=== PATIENT | female | born 1945 | race Caucasian/White ===

== ENCOUNTER 2016-12-02 11:50 | Emergency (ER) | payer MEDICARE, OTHER ==
[~2016-12-02] VITALS: Ht 167.6 cm; Wt 90.7 kg
[~2016-12-02 11:50] MED LIST: ALPR.25T PO; ALPR1TAB11 PO; AMLO10TA82 PO; ASP81CT PO; CA C1TAB80 PO; CEPH500C PO; CITA-105 PO; CTLP20T PO; CYCL10TA9 PO; ESTR0.9T PO; FERR-57 PO; GBPN300C PO; HCT25T PO; HYDR-3720 PO; HYDR25TA4 PO; IRON PO; ISM30TCR PO; LANS30CA PO; MELO-195 PO; MTP25TSR PO; OLME40TA14 PO; OXYC30TA76 PO; OXYC40TA49 PO; POTA10CA43 PO; PRAV10TA23 PO; RECLAST; SOLI5TAB4 PO; SPIR25TA3 PO; SPRN25T PO; TEMA30CA PO; TOLTA4 PO
[2016-12-02] MEDS ORDERED: HYDROmorphone (DILAUDID) 2 MG/ML VIAL IM STA (12:02)
--- NOTE | 2016-12-02 12:10 | ED Lower Extremity ---
General Chief Complaint: Lower Extremity Stated Complaint: KNEE PAIN Nursing Triage Note: c/o chronic left knee pain. Denies recent injury to knee. Hx of severe arthritis left knee. Pt has been told she needs a left knee replacement. Nursing Sepsis Screen: No Definite Risk Source: patient, EMS Exam Limitations: no limitations History of Present Illness Time seen by provider: 11:56 Initial Comments Here with report of acute exacerbation of left knee pain after packing at home over the last few days. Her typical pain med dosing is not working. Onset: other (2-3 days) Severity: moderate Pain/Injury Location: left knee Method of Injury: unknown Modifying Factors: Improves With Immobilization, Worse With Movement Allergies and Home Medications Allergies Coded Allergies: adhesive (Unverified Allergy, Unknown, 04/19/14) codeine (Verified Allergy, Unknown, 04/19/14) solifenacin succinate (Verified Allergy, Unknown, 04/19/14) Home Medications Alprazolam 1 Mg Tab.rapdis, 1 MG PO BID PRN, (Reported) PRN ANXIETY Citalopram Hydrobromide 40 Mg Tablet, 40 MG PO DAILY, (Reported) Hydrochlorothiazide 25 Mg Tablet, 25 MG PO PRN PRN for SWELLING, (Reported) Isosorbide Mononitrate 30 Mg Tab, 30 MG PO DAILY, (Reported) Lansoprazole 30 Mg Capsule.dr, 30 MG PO DAILY, (Reported) Oxycodone Hcl 40 Mg Tab.sr.12h, 40 MG PO TID, (Reported) Potassium Chloride 10 Meq Capsule.sa, 1 EACH PO DAILY WITH FOOD, (Reported) Pravastatin Sodium 10 Mg Tablet, 10 MG PO HS, (Reported) Spironolactone 25 Mg Tab, 25 MG PO PRN PRN for SWELLING, (Reported) Temazepam 30 Mg Capsule, 30 MG PO HS, (Reported) [Iron] , 625 MG PO BID, (Reported) Constitutional: see HPI, No chills, No fever Respiratory: no symptoms reported Cardiovascular: no symptoms reported Musculoskeletal: see HPI, joint pain, joint swelling Skin: no symptoms reported Past Myowpqp-Vawvlc-Gtyjog Hx Patient Social History Smoking Status: Unknown if Ever Smoked Recent Foreign Travel: No Contact w/Someone Who Travel: No Recent Infectious Disease Expo: No Immunizations Up To Date Date of Pneumonia Vaccine: May 11, 2011 Date of Influenza Vaccine: May 31, 2012 Surgeries HX Surgeries: Yes (LUMBAR SURGERY, LIVER BX, RIGHT BREAST BX, ERCP, HIATAL HERNIA, HEART CATH) Respiratory Hx Respiratory Disorders: Yes ( A CHILD) Respiratory Disorders: Asthma Cardiovascular Hx Cardiac Disorders: Yes (PACEMAKER- MEDTRONIC, MITRAL VALVE REGURITATION, BRADYCARDIA) Neurological Hx Neurological Disorders: No Reproductive System : No Hx Reproductive Disorders: No Sexually Transmitted Disease: No HIV/AIDS: No Female Reproductive Disorders: Denies Genitourinary Hx Genitourinary Disorders: No Gastrointestinal Hx Gastrointestinal Disorders: Yes Gastrointestinal Disorders: Gastroesophageal Reflux Musculoskeletal Hx Musculoskeletal Disorders: Yes (OSTEOARTHRITIS/FIBROMYALGIA) Musculoskeletal Disorders: Arthritis Endocrine Hx Endocrine Disorders: No HEENT HX ENT Disorders: No Cancer Hx Cancer: No Psychosocial Hx Psychiatric Problems: Yes Integumentary HX Skin/Integumentary Disorder: Yes (RIGHT LOWER LEG, SKIN TEARS AND BRUISES EASY) Skin/Integumentary Disorders: Psoriasis Blood Transfusions Hx Blood Disorders: No Adverse Reaction to a Blood Tr: No Reviewed Nursing Assessment Reviewed/Agree w Nursing PMH: Yes Family Medical History Significant Family History: No Pertinent Family Hx Family Medial History: Alzheimer's disease 19 FATHER Cardiovascular disease 19 MOTHER Coronary thrombosis 19 MOTHER FH: lung cancer G8 BROTHER Physical Exam Vital Signs Vital Sign - Last 12Hours 12/02/16 11:58 Temp 98.5 Pulse 70 Resp 18 B/P (MAP) 121/72 Pulse Ox 98 Capillary Refill : Less Than 3 Seconds General Appearance: WD/WN, no apparent distress Cardiovascular: regular rate, rhythm, no murmur Respiratory: lungs clear, normal breath sounds Knees: right knee non-tender, right knee normal inspection, left knee pain, left knee soft tissue tenderness, left knee other (Pain with range of motion) Feet: bilateral foot other (DP pulses equal and strong bilat) Neurologic/Psychiatric: alert, oriented x 3 Skin: normal color, warm/dry Progress/Results/Core Measures Results/Orders My Orders Orders - KAYLIE BRICEÑO MD Hydromorphone Injection (Dilaudid Inject (12/02/16 12:02) Prednisone Tablet (Deltasone Tablet) (12/02/16 12:15) Medications Given in ED Current Medications Medications Dose Ordered Sig/Meliza Route Start Time Stop Time Status Last Admin Dose Admin Prednisone 40 mg ONCE ONCE PO 12/02/16 12:15 12/02/16 12:16 DC 12/02/16 12:14 40 MG Vital Signs/I&O Vital Sign - Last 12Hours 12/02/16 12/02/16 11:58 12:15 Temp 98.5 98.3 Pulse 70 Resp 18 B/P (MAP) 121/72 Pulse Ox 98 Blood Pressure Mean: 88 Progress Note : Progress Note Seen and evaluated. Dilaudid 2 mg IM and prednisone 40 mg po. Attempted to contact Dr. Snell and waiting for return call. 1240: Patient states the pain is somewhat improved. I will write a small prescription for breakthrough pain medicine with Dilaudid 2 mg tablets by mouth. She needs to follow up with her doctor. Copy of chart to Dr. Snell. Discharge home with return precautions. Patient verbalize understanding instructions and agreement with plan. Departure Impression Impression: Primary Impression: Chronic pain of left knee Disposition: HOME, SELF-CARE Condition: Stable Departure-Patient Inst. Decision time for Depature: 12:38 Referrals: COCO SNELL MD (PCP/Family) Primary Care Physician Patient Instructions: Chronic Knee Pain (DC) Add. Discharge Instructions: All discharge instructions reviewed with patient and/or family. Voiced understanding. Take medications as directed. Follow-up with your DrWali in 1-2 days for recheck. Return for worse pain, fever, vomiting, weakness, breathing problems or other concerns as needed. Scripts Prednisone (Prednisone) 20 Mg Tab 20 MG PO DAILY, #6 TAB 0 Refills Prov: KAYLIE RBICEÑO MD 12/02/16 Hydromorphone HCl (Dilaudid) 2 Mg Tablet 2 MG PO Q6H Y for PAIN, #8 TAB 0 Refills Prov: KAYLIE BRICEÑO MD 12/02/16 Copy Copies To 1: COCO SNELL MD, TIMOTHY D MD Dec 02, 2016 12:10
[2016-12-02] MEDS ORDERED: predniSONE 20 MG TAB PO ONE (12:15)
[2016-12-02] MEDS ORDERED: HYDR2TAB30 PO (12:42)
[2016-12-02] MEDS ORDERED: PRD20T PO (12:42)
[2016-12-02 12:55] VITALS: BP 122/71
--- OUTSIDE RECORDS SUMMARY | 2017-01-04 14:09 | XMS REPORT | Continuity of Care Document ---
Demographics Preferred Language Unknown Marital Status Unknown Pentecostal Affiliation Unknown Race Unknown Ethnic Group Unknown Author Author [facility] Address Unknown Phone Unavailable Allergies Active Description Code Type Severity Reaction Onset Reported/Identified Relationship to Patient Clinical Status Yes adhesive [id number] Drug Allergy Unknown N/A 04/19/2014 Yes codeine [id number] Drug Allergy Unknown N/A 04/19/2014 Yes solifenacin succinate [id number] Drug Allergy Unknown N/A 04/19/2014 Medications Problems Date Dx Coded Attending Type Code Diagnosis Diagnosed By 06/20/2011 Ot 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 06/20/2011 Ot 276.51 DEHYDRATION 06/20/2011 Ot 311 DEPRESSIVE DISORDER NEC 06/20/2011 Ot 356.9 IDIO PERIPH NEURPTHY NOS 06/20/2011 Ot 496 CHR AIRWAY OBSTRUCT NEC 06/20/2011 Ot 584.9 ACUTE RENAL FAILURE, UNSPECIFIED 06/20/2011 Ot 596.89 OTHER SPECIFIED DISORDERS OF BLADDER 06/20/2011 Ot 599.0 URIN TRACT INFECTION NOS 06/20/2011 Ot 715.89 OSTEOARTHROSIS-MULT SITE 06/20/2011 Ot 725 POLYMYALGIA RHEUMATICA 06/20/2011 Ot 780.52 INSOMNIA, UNSPECIFIED 06/20/2011 Ot 780.79 OTH MALAISE FATIGUE 06/20/2011 Ot 995.92 SEVERE SEPSIS 06/20/2011 Ot V15.82 HISTORY OF TOBACCO USE 07/04/2011 Ot 278.01 MORBID OBESITY 07/04/2011 Ot 311 DEPRESSIVE DISORDER NEC 07/04/2011 Ot 401.9 HYPERTENSION NOS 07/04/2011 Ot 410.71 AC MYOCARDIAL INFARCT,SUBENDO INFARCT,IN 07/04/2011 Ot 414.01 CORONARY ATHEROSCLEROSIS OF [place] CORON 07/04/2011 Ot 427.89 CARDIAC DYSRHYTHMIAS NEC 07/04/2011 Ot 428.0 CONGESTIVE HEART FAILURE NOS 07/04/2011 Ot 428.31 ACUTE DIASTOLIC HRT FAILURE 07/04/2011 Ot 530.81 ESOPHAGEAL REFLUX 07/04/2011 Ot 599.0 URIN TRACT INFECTION NOS 07/04/2011 Ot 715.89 OSTEOARTHROSIS-MULT SITE 07/04/2011 Ot 725 POLYMYALGIA RHEUMATICA 07/04/2011 Ot 729.81 SWELLING OF LIMB 07/04/2011 Ot 780.52 INSOMNIA, UNSPECIFIED 07/04/2011 Ot V85.42 BODY MASS INDEX 45.0-49.9, ADULT 06/22/2012 Ot 724.02 SPINAL STENOSIS, LUMBAR REG, W/OUT NEURO 06/22/2012 Ot 724.4 LUMBOSACRAL NEURITIS NOS 09/17/2012 V06.1 DTAP DX 12/17/2012 Ot 786.05 SHORTNESS OF BREATH 12/17/2012 Ot 786.09 RESPIRATORY ABNORM NEC 01/03/2013 JANUSZ PADILLA MD Ot 401.9 HYPERTENSION NOS 01/03/2013 JANUSZ PADILLA MD Ot 412 OLD MYOCARDIAL INFARCT 01/03/2013 JANUSZ PADILLA MD Ot 414.01 CORONARY ATHEROSCLEROSIS OF [place] CORON 01/03/2013 JANUSZ PADILLA MD Ot 427.89 CARDIAC DYSRHYTHMIAS NEC 01/03/2013 JANUSZ PADILLA MD Ot 780.4 DIZZINESS AND GIDDINESS 01/03/2013 JANUSZ PADILLA MD Ot 780.79 OTH MALAISE FATIGUE 01/03/2013 JANUSZ PADILLA MD Ot 786.05 SHORTNESS OF BREATH 01/03/2013 JANUSZ PADILLA MD Ot 786.50 CHEST PAIN NOS 01/03/2013 JANUSZ PADILLA MD Ot 794.4 ABN KIDNEY FUNCT STUDY 01/03/2013 JANUSZ PADILLA MD Ot V58.69 OTH MED,LT,CURRENT USE 01/03/2013 JANUSZ PADILLA MD Ot V64.1 NO PROC/CONTRAINDICATION 01/19/2013 WHITNEY WALL MD Ot 272.4 HYPERLIPIDEMIA NEC/NOS 01/19/2013 WHITNEY WALL MD Ot 278.00 OBESITY, NOS 01/19/2013 WHITNEY WALL MD Ot 300.00 ANXIETY STATE NOS 01/19/2013 WHITNEY WALL MD Ot 311 DEPRESSIVE DISORDER NEC 01/19/2013 WHITNEY WALL MD Ot 327.23 OBSTRUCTIVE SLEEP APNEA (ADULT) (PEDIATR 01/19/2013 WHITNEY WALL MD Ot 401.9 HYPERTENSION NOS 01/19/2013 WHITNEY WALL MD Ot 416.8 CHR PULMON HEART DIS NEC 01/19/2013 WHITNEY WALL MD Ot 427.69 PREMATURE BEATS NEC 01/19/2013 WHITNEY WALL MD Ot 427.81 SINOATRIAL NODE DYSFUNCT 01/19/2013 WHITNEY WALL MD Ot 458.9 HYPOTENSION NOS 01/19/2013 WHITNEY WALL MD Ot 496 CHR AIRWAY OBSTRUCT NEC 01/19/2013 WHITNEY WALL MD Ot 530.81 ESOPHAGEAL REFLUX 01/19/2013 WHITNEY WALL MD Ot 593.9 RENAL URETERAL DIS NOS 01/19/2013 WHITNEY WALL MD Ot 714.0 RHEUMATOID ARTHRITIS 01/19/2013 WHITNEY WALL MD Ot 782.3 EDEMA 01/19/2013 WHITNEY WALL MD Ot V64.1 NO PROC/CONTRAINDICATION 01/19/2013 WHITNEY WALL MD Ot V85.39 BODY MASS INDEX 39.0-39.9, ADULT 07/22/2013 COCO SNELL MD Ot 733.90 BONE CARTILAGE DIS NOS 02/09/2015 COCO SNELL MD Ot V76.12 02/05/2016 Ot 735.4 OTHER HAMMER TOE 02/05/2016 Ot V72.83 EXAM PRE-OPERATIVE NEC 02/05/2016 Ot 735.4 OTHER HAMMER TOE 02/05/2016 Ot 799.9 UNKN CAUSE MORB/MORT NEC 02/05/2016 Ot V64.1 NO PROC/CONTRAINDICATION 02/05/2016 Ot 610.0 SOLITARY CYST OF BREAST 02/05/2016 Ot 715.34 LOC OSTEOARTH NOS-HAND 02/05/2016 Ot 401.9 HYPERTENSION NOS 02/05/2016 Ot 401.9 HYPERTENSION NOS 02/05/2016 Ot 786.09 RESPIRATORY ABNORM NEC 02/05/2016 Ot 733.00 OSTEOPOROSIS NOS 02/05/2016 Ot 793.82 INCONCLUSIVE MAMMOGRAM 02/05/2016 Ot V76.12 OT SCREEN MAMMO-MALIGN NEOPLASM OF DERECK 02/05/2016 Ot 793.80 UNSPEC ABNORMAL MAMMOGRAM 02/05/2016 Ot 715.94 OSTEOARTHROS NOS-HAND 02/05/2016 Ot 715.96 OSTEOARTHROS NOS-L/LEG 02/05/2016 Ot 717.42 DERANGE ANT LAT MENISCUS 02/05/2016 Ot 733.90 BONE CARTILAGE DIS NOS 02/05/2016 Ot 562.10 DIVERTICULOSIS COLON (W/O MENT OF HEMORR 02/05/2016 Ot 789.02 ABDOMINAL PAIN, LEFT UPPER QUADRANT 02/05/2016 Ot 793.80 UNSPEC ABNORMAL MAMMOGRAM 02/05/2016 Ot 368.14 DISTORTION OF SHAPE/SIZE 02/05/2016 Ot V72.84 EXAM PRE-OPERATIVE NOS 02/05/2016 Ot 724.02 SPINAL STENOSIS, LUMBAR REG, W/OUT NEURO 02/05/2016 Ot V72.63 PRE-PROCEDURAL LABORATORY EXAMINATION 02/05/2016 Ot V72.81 [id number] CARDIOVASCULAR 02/05/2016 Ot V74.8 SCREEN-BACTERIAL DIS NEC 02/05/2016 JANUSZ PADILLA MD Ot 401.9 HYPERTENSION NOS 02/05/2016 RANDY HONG, JANUSZ Ot 414.01 CORONARY ATHEROSCLEROSIS OF [place] CORON 02/05/2016 JANUSZ PADILLA MD Ot 429.3 CARDIOMEGALY 02/05/2016 JANUSZ PADILLA MD Ot 780.4 DIZZINESS AND GIDDINESS 02/05/2016 JANUSZ PADILLA MD Ot 780.79 OTH MALAISE FATIGUE 02/05/2016 JANUSZ PADILLA MD Ot 786.05 SHORTNESS OF BREATH 02/05/2016 JANUSZ PADILLA MD Ot 786.50 CHEST PAIN NOS 02/05/2016 JANUSZ PADILLA MD Ot V58.69 OTH MED,LT,CURRENT USE 02/05/2016 JANUSZ PADILLA MD Ot V72.63 PRE-PROCEDURAL LABORATORY EXAMINATION 02/05/2016 JANUSZ PADILLA MD Ot V72.83 EXAM PRE-OPERATIVE NEC 02/05/2016 LUPIS GRIER TYPIST Ot 397.0 TRICUSPID VALVE DISEASE 02/05/2016 LUPIS GRIER TYPIST Ot 401.9 HYPERTENSION NOS 02/05/2016 LPUIS GRIERP Ot 414.00 CORON ATHEROSCLER NOS TYPE VESSEL, NATIV 02/05/2016 LUPIS GRIERP Ot 424.0 MITRAL VALVE DISORDER 02/05/2016 LUPIS GRIER TYPIST Ot 780.4 DIZZINESS AND GIDDINESS 02/05/2016 LUPIS GRIER TYPIST Ot 780.79 OTH MALAISE FATIGUE 02/05/2016 LUPIS GRIER TYPIST Ot 786.05 SHORTNESS OF BREATH 02/05/2016 LUPIS GRIER TYPIST Ot 786.50 CHEST PAIN NOS 02/05/2016 LUPIS GRIER TYPIST Ot V58.69 OT MED,LT,CURRENT USE 02/05/2016 OSIIVICTORIA BILL TYPIST Ot 786.50 CHEST PAIN NOS 02/05/2016 OSIIVICTORIA BILL TYPIST Ot V45.01 CARDIAC PACEMAKER IN SITU 02/05/2016 MEENA HONG, NISHANT Reza Ot 715.36 LOC OSTEOARTH NOS-L/LEG 02/05/2016 MEENA HONG, NISHANT Reza Ot 791.9 ABN URINE FINDINGS NEC 02/05/2016 MEENA HONG, NISHANT Reza Ot V72.63 PRE-PROCEDURAL LABORATORY EXAMINATION 02/05/2016 MEENA HONG, NISHANT Reza Ot V72.81 [id number] CARDIOVASCULAR 02/05/2016 MEENA HONG, NISHANT Reza Ot V72.83 EXAM PRE-OPERATIVE NEC 02/05/2016 MEENA HONG, NISHANT Reza Ot V74.8 SCREEN-BACTERIAL DIS NEC 02/05/2016 SARBJIT AVILES Ot 397.0 TRICUSPID VALVE DISEASE 02/05/2016 SARBJIT AVILES Ot 401.9 HYPERTENSION NOS 02/05/2016 SARBJIT AVILES Ot 414.00 CORON ATHEROSCLER NOS TYPE VESSEL, NATIV 02/05/2016 SARBJIT AVILES Ot 424.0 MITRAL VALVE DISORDER 02/05/2016 SARBJIT AVILES Ot 427.81 SINOATRIAL NODE DYSFUNCT 02/05/2016 SARBJIT AVILES Ot 496 CHR AIRWAY OBSTRUCT NEC 02/05/2016 ALIS HONG, COCO Terrell Ot V76.12 OTH SCREEN MAMMO-MALIGN NEOPLASM OF DERECK 02/05/2016 COCO SNELL MD Ot Z12.31 ENCNTR SCREEN MAMMOGRAM FOR MALIGNANT NE 02/06/2016 COCO SNELL MD Ot Z12.31 ENCNTR SCREEN MAMMOGRAM FOR MALIGNANT NE 02/07/2016 COCO SENLL MD Ot Z12.31 ENCNTR SCREEN MAMMOGRAM FOR MALIGNANT NE 02/07/2016 COCO SNELL MD Ot Z12.31 ENCNTR SCREEN MAMMOGRAM FOR MALIGNANT NE 02/26/2016 COCO SNELL MD Ot Z12.31 ENCNTR SCREEN MAMMOGRAM FOR MALIGNANT NE 02/29/2016 JANUSZ PADILLA MD Ot 401.9 HYPERTENSION NOS 02/29/2016 JANUSZ PADILLA MD Ot 414.01 CORONARY ATHEROSCLEROSIS OF [place] CORON 02/29/2016 JANUSZ PADILLA MD Ot 429.3 CARDIOMEGALY 02/29/2016 JANUSZ PADILLA MD Ot 780.4 DIZZINESS AND GIDDINESS 02/29/2016 JANUSZ PADILLA MD Ot 780.79 OTH MALAISE FATIGUE 02/29/2016 JANUSZ PADILLA MD Ot 786.05 SHORTNESS OF BREATH 02/29/2016 JANUSZ PADILLA MD Ot 786.50 CHEST PAIN NOS 02/29/2016 JANUSZ PADILLA MD Ot V58.69 OTH MED,LT,CURRENT USE 02/29/2016 JANUSZ PADILLA MD Ot V72.63 PRE-PROCEDURAL LABORATORY EXAMINATION 02/29/2016 JANUSZ PADILLA MD Ot V72.83 EXAM PRE-OPERATIVE NEC 03/21/2016 ALIS HONG, COCO Terrell Ot M79.642 PAIN IN LEFT HAND 04/11/2016 ALIS HONG, COCO Terrell Ot M79.642 PAIN IN LEFT HAND 05/02/2016 COCO SNELL MD Ot M79.642 PAIN IN LEFT HAND 05/28/2016 Ot 401.9 HYPERTENSION NOS 05/28/2016 Ot 401.9 HYPERTENSION NOS 05/28/2016 Ot 786.09 RESPIRATORY ABNORM NEC 05/28/2016 Ot 733.00 OSTEOPOROSIS NOS 05/28/2016 Ot 793.82 INCONCLUSIVE MAMMOGRAM 05/28/2016 Ot V76.12 OTH SCREEN MAMMO-MALIGN NEOPLASM OF DERECK 05/28/2016 Ot 793.80 UNSPEC ABNORMAL MAMMOGRAM 05/28/2016 Ot 715.94 OSTEOARTHROS NOS-HAND 05/28/2016 Ot 715.96 OSTEOARTHROS NOS-L/LEG 05/28/2016 Ot 717.42 DERANGE ANT LAT MENISCUS 05/28/2016 Ot 733.90 BONE CARTILAGE DIS NOS 05/28/2016 Ot 562.10 DIVERTICULOSIS COLON (W/O MENT OF HEMORR 05/28/2016 Ot 789.02 ABDOMINAL PAIN, LEFT UPPER QUADRANT 05/28/2016 Ot 793.80 UNSPEC ABNORMAL MAMMOGRAM 05/28/2016 Ot 368.14 DISTORTION OF SHAPE/SIZE 05/28/2016 Ot V72.84 EXAM PRE-OPERATIVE NOS 05/28/2016 Ot 724.02 SPINAL STENOSIS, LUMBAR REG, W/OUT NEURO 05/28/2016 Ot V72.63 PRE-PROCEDURAL LABORATORY EXAMINATION 05/28/2016 Ot V72.81 [id number] CARDIOVASCULAR 05/28/2016 Ot V74.8 SCREEN-BACTERIAL DIS NEC 05/28/2016 JANUSZ PADILLA MD Ot 401.9 HYPERTENSION NOS 05/28/2016 RANDY HONG, JANUSZ Ot 414.01 CORONARY ATHEROSCLEROSIS OF [place] CORON 05/28/2016 JANUSZ PADILLA MD Ot 429.3 CARDIOMEGALY 05/28/2016 JANUSZ PADILLA MD Ot 780.4 DIZZINESS AND GIDDINESS 05/28/2016 JANUSZ PADILLA MD Ot 780.79 OTH MALAISE FATIGUE 05/28/2016 JANUSZ PADILLA MD Ot 786.05 SHORTNESS OF BREATH 05/28/2016 JANUSZ PADILLA MD Ot 786.50 CHEST PAIN NOS 05/28/2016 JANUSZ PADILLA MD Ot V58.69 OTH MED,LT,CURRENT USE 05/28/2016 JANUSZ PADILLA MD Ot V72.63 PRE-PROCEDURAL LABORATORY EXAMINATION 05/28/2016 JANUSZ PADILLA MD Ot V72.83 EXAM PRE-OPERATIVE NEC 05/28/2016 CHERRIE LUPIS Milind TYPIST Ot 397.0 TRICUSPID VALVE DISEASE 05/28/2016 CHERRIE LUPIS Milind TYPIST Ot 401.9 HYPERTENSION NOS 05/28/2016 CHERRIE LUPIS Milind TYPIST Ot 414.00 CORON ATHEROSCLER NOS TYPE VESSEL, NATIV 05/28/2016 CHERRIE LUPIS Milind TYPIST Ot 424.0 MITRAL VALVE DISORDER 05/28/2016 CHERRIE LUPIS Milind TYPIST Ot 780.4 DIZZINESS AND GIDDINESS 05/28/2016 LUPIS GRIER TYPIST Ot 780.79 OTH MALAISE FATIGUE 05/28/2016 LUPIS GRIER TYPIST Ot 786.05 SHORTNESS OF BREATH 05/28/2016 LUPIS GRIER TYPIST Ot 786.50 CHEST PAIN NOS 05/28/2016 CHERRIE LUPIS Milind TYPIST Ot V58.69 OTH MED,LT,CURRENT USE 05/28/2016 VICTORIA DE JESUS TYPIST Ot 786.50 CHEST PAIN NOS 05/28/2016 VICTORIA DE JESUS JANUSZ Ot V45.01 CARDIAC PACEMAKER IN SITU 05/28/2016 MEENA HONG, NISHANT Reza Ot 715.36 LOC OSTEOARTH NOS-L/LEG 05/28/2016 MEENA HONG, NISHANT Reza Ot 791.9 ABN URINE FINDINGS NEC 05/28/2016 MEENA HONG, NISHANT Reza Ot V72.63 PRE-PROCEDURAL LABORATORY EXAMINATION 05/28/2016 MEENA HONG, NISHANT Reza Ot V72.81 COIU-MAL-CORSZBDGZ CARDIOVASCULAR 05/28/2016 NISHANT ROBLEDO MD Ot V72.83 EXAM PRE-OPERATIVE NEC 05/28/2016 MEENA HONG, NISHANT Reza Ot V74.8 SCREEN-BACTERIAL DIS NEC 05/28/2016 SARBJIT AVILES Ot 397.0 TRICUSPID VALVE DISEASE 05/28/2016 SARBJIT AVILES Ot 401.9 HYPERTENSION NOS 05/28/2016 SARBJIT AVILES Ot 414.00 CORON ATHEROSCLER NOS TYPE VESSEL, NATIV 05/28/2016 SARBJIT AVILES Ot 424.0 MITRAL VALVE DISORDER 05/28/2016 SARBJIT AVILES Ot 427.81 SINOATRIAL NODE DYSFUNCT 05/28/2016 SARBJIT AVILES Ot 496 CHR AIRWAY OBSTRUCT NEC 05/28/2016 ALIS HONG, COCO Terrell Ot V76.12 OTH SCREEN MAMMO-MALIGN NEOPLASM OF DERECK 05/28/2016 COCO SNELL MD Ot Z12.31 ENCNTR SCREEN MAMMOGRAM FOR MALIGNANT NE 05/28/2016 ALIS HONG, COCO Terrell Ot M79.642 PAIN IN LEFT HAND 05/30/2016 Ot 401.9 HYPERTENSION NOS 05/30/2016 Ot 401.9 HYPERTENSION NOS 05/30/2016 Ot 786.09 RESPIRATORY ABNORM NEC 05/30/2016 Ot 733.00 OSTEOPOROSIS NOS 05/30/2016 Ot 793.82 INCONCLUSIVE MAMMOGRAM 05/30/2016 Ot V76.12 OTH SCREEN MAMMO-MALIGN NEOPLASM OF DERECK 05/30/2016 Ot 793.80 UNSPEC ABNORMAL MAMMOGRAM 05/30/2016 Ot 715.94 OSTEOARTHROS NOS-HAND 05/30/2016 Ot 715.96 OSTEOARTHROS NOS-L/LEG 05/30/2016 Ot 717.42 DERANGE ANT LAT MENISCUS 05/30/2016 Ot 733.90 BONE CARTILAGE DIS NOS 05/30/2016 Ot 562.10 DIVERTICULOSIS COLON (W/O MENT OF HEMORR 05/30/2016 Ot 789.02 ABDOMINAL PAIN, LEFT UPPER QUADRANT 05/30/2016 Ot 793.80 UNSPEC ABNORMAL MAMMOGRAM 05/30/2016 Ot 368.14 DISTORTION OF SHAPE/SIZE 05/30/2016 Ot V72.84 EXAM PRE-OPERATIVE NOS 05/30/2016 Ot 724.02 SPINAL STENOSIS, LUMBAR REG, W/OUT NEURO 05/30/2016 Ot V72.63 PRE-PROCEDURAL LABORATORY EXAMINATION 05/30/2016 Ot V72.81 [id number] CARDIOVASCULAR 05/30/2016 Ot V74.8 SCREEN-BACTERIAL DIS NEC 05/30/2016 RANDY HONG, JANUSZ Ot 401.9 HYPERTENSION NOS 05/30/2016 RANDY HONG, JANUSZ Ot 414.01 CORONARY ATHEROSCLEROSIS OF [place] CORON 05/30/2016 RANDY HONG, JANUSZ Ot 429.3 CARDIOMEGALY 05/30/2016 RANDY HONG, JANUSZ Ot 780.4 DIZZINESS AND GIDDINESS 05/30/2016 RANDY HONG, JANUSZ Ot 780.79 OTH MALAISE FATIGUE 05/30/2016 RANDY HONG, JANUSZ Ot 786.05 SHORTNESS OF BREATH 05/30/2016 RANDY HONG, JANUSZ Ot 786.50 CHEST PAIN NOS 05/30/2016 RANDY HONG, JANUSZ Ot V58.69 OTH MED,LT,CURRENT USE 05/30/2016 JANUSZ PADILLA MD Ot V72.63 PRE-PROCEDURAL LABORATORY EXAMINATION 05/30/2016 RANDY HONG, JANUSZ Ot V72.83 EXAM PRE-OPERATIVE NEC 05/30/2016 LUPIS GRIERP Ot 397.0 TRICUSPID VALVE DISEASE 05/30/2016 LUPIS GRIER TYPIST Ot 401.9 HYPERTENSION NOS 05/30/2016 LUPIS GRIER TYPIST Ot 414.00 CORON ATHEROSCLER NOS TYPE VESSEL, NATIV 05/30/2016 LUPIS GRIERP Ot 424.0 MITRAL VALVE DISORDER 05/30/2016 LUPIS GRIER TYPIST Ot 780.4 DIZZINESS AND GIDDINESS 05/30/2016 LUPIS GRIER TYPIST Ot 780.79 OTH MALAISE FATIGUE 05/30/2016 LUPIS GRIER TYPIST Ot 786.05 SHORTNESS OF BREATH 05/30/2016 LUPIS GRIER TYPIST Ot 786.50 CHEST PAIN NOS 05/30/2016 LUPIS GRIER TYPIST Ot V58.69 OTH MED,LT,CURRENT USE 05/30/2016 OSIIVICTORIA BILL TYPIST Ot 786.50 CHEST PAIN NOS 05/30/2016 OSIIVICTORIA BILL TYPIST Ot V45.01 CARDIAC PACEMAKER IN SITU 05/30/2016 MEENA HONG, NISHANT Reza Ot 715.36 LOC OSTEOARTH NOS-L/LEG 05/30/2016 MEENA HONG, NISHANT Reza Ot 791.9 ABN URINE FINDINGS NEC 05/30/2016 MEENA HONG, NISHANT Reza Ot V72.63 PRE-PROCEDURAL LABORATORY EXAMINATION 05/30/2016 MEENA HONG, NISHANT Reza Ot V72.81 [id number] CARDIOVASCULAR 05/30/2016 NISHANT ROBLEDO MD Ot V72.83 EXAM PRE-OPERATIVE NEC 05/30/2016 MEENA HONG, NISHANT Reza Ot V74.8 SCREEN-BACTERIAL DIS NEC 05/30/2016 SARBJIT AVILES Ot 397.0 TRICUSPID VALVE DISEASE 05/30/2016 SARBJIT AVILES Ot 401.9 HYPERTENSION NOS 05/30/2016 SARBJIT AVILES Ot 414.00 CORON ATHEROSCLER NOS TYPE VESSEL, NATIV 05/30/2016 SARBJIT AVILES Ot 424.0 MITRAL VALVE DISORDER 05/30/2016 SARBJIT AVILES Ot 427.81 SINOATRIAL NODE DYSFUNCT 05/30/2016 SARBJIT AVILES Ot 496 CHR AIRWAY OBSTRUCT NEC 05/30/2016 ALIS HONG, COCO Terrell Ot V76.12 OTH SCREEN MAMMO-MALIGN NEOPLASM OF DERECK 05/30/2016 ALIS HONG, COCO Terrell Ot Z12.31 ENCNTR SCREEN MAMMOGRAM FOR MALIGNANT NE 05/30/2016 ALIS HONG, COCO Terrell Ot M79.642 PAIN IN LEFT HAND 05/30/2016 SARBJIT AVILES Ot I10 ESSENTIAL (PRIMARY) HYPERTENSION 05/30/2016 SARBJIT AVILES Ot I25.10 ATHSCL HEART DISEASE OF [place] CORONARY 05/30/2016 SARBJIT AVILES Ot I49.5 SICK SINUS SYNDROME 05/30/2016 SARBJIT AVILES Ot R07.89 OTHER CHEST PAIN 06/06/2016 Ot 401.9 HYPERTENSION NOS 06/06/2016 Ot 401.9 HYPERTENSION NOS 06/06/2016 Ot 786.09 RESPIRATORY ABNORM NEC 06/06/2016 Ot 733.00 OSTEOPOROSIS NOS 06/06/2016 Ot 793.82 INCONCLUSIVE MAMMOGRAM 06/06/2016 Ot V76.12 OTH SCREEN MAMMO-MALIGN NEOPLASM OF DERECK 06/06/2016 Ot 793.80 UNSPEC ABNORMAL MAMMOGRAM 06/06/2016 Ot 715.94 OSTEOARTHROS NOS-HAND 06/06/2016 Ot 715.96 OSTEOARTHROS NOS-L/LEG 06/06/2016 Ot 717.42 DERANGE ANT LAT MENISCUS 06/06/2016 Ot 733.90 BONE CARTILAGE DIS NOS 06/06/2016 Ot 562.10 DIVERTICULOSIS COLON (W/O MENT OF HEMORR 06/06/2016 Ot 789.02 ABDOMINAL PAIN, LEFT UPPER QUADRANT 06/06/2016 Ot 793.80 UNSPEC ABNORMAL MAMMOGRAM 06/06/2016 Ot 368.14 DISTORTION OF SHAPE/SIZE 06/06/2016 Ot V72.84 EXAM PRE-OPERATIVE NOS 06/06/2016 Ot 724.02 SPINAL STENOSIS, LUMBAR REG, W/OUT NEURO 06/06/2016 Ot V72.63 PRE-PROCEDURAL LABORATORY EXAMINATION 06/06/2016 Ot V72.81 PBEM-LNS-HUATONIVO CARDIOVASCULAR 06/06/2016 Ot V74.8 SCREEN-BACTERIAL DIS NEC 06/06/2016 RANDY HONG, JANUSZ Ot 401.9 HYPERTENSION NOS 06/06/2016 RANDY HONG, JANUSZ Ot 414.01 CORONARY ATHEROSCLEROSIS OF [place] CORON 06/06/2016 RANDY HONG, JANUSZ Ot 429.3 CARDIOMEGALY 06/06/2016 RANDY HONG, JANUSZ Ot 780.4 DIZZINESS AND GIDDINESS 06/06/2016 RANDY HONG, JANUSZ Ot 780.79 OTH MALAISE FATIGUE 06/06/2016 RANDY HONG, JANUSZ Ot 786.05 SHORTNESS OF BREATH 06/06/2016 JANUSZ PADILLA MD Ot 786.50 CHEST PAIN NOS 06/06/2016 JANUSZ PADILLA MD Ot V58.69 OTH MED,LT,CURRENT USE 06/06/2016 JANUSZ PADILLA MD Ot V72.63 PRE-PROCEDURAL LABORATORY EXAMINATION 06/06/2016 JANSUZ PADILLA MD Ot V72.83 EXAM PRE-OPERATIVE NEC 06/06/2016 LUPIS GRIER TYPIST Ot 397.0 TRICUSPID VALVE DISEASE 06/06/2016 LUPIS GRIER TYPIST Ot 401.9 HYPERTENSION NOS 06/06/2016 LUPIS GRIER TYPIST Ot 414.00 CORON ATHEROSCLER NOS TYPE VESSEL, NATIV 06/06/2016 LUPIS GRIER TYPIST Ot 424.0 MITRAL VALVE DISORDER 06/06/2016 LUPIS GRIER TYPIST Ot 780.4 DIZZINESS AND GIDDINESS 06/06/2016 LUPIS GRIER TYPIST Ot 780.79 OTH MALAISE FATIGUE 06/06/2016 LUPIS GRIER TYPIST Ot 786.05 SHORTNESS OF BREATH 06/06/2016 LUPIS GRIER TYPIST Ot 786.50 CHEST PAIN NOS 06/06/2016 LUPIS GRIER TYPIST Ot V58.69 OTH MED,LT,CURRENT USE 06/06/2016 OSIIVICTORIA BILL TYPIST Ot 786.50 CHEST PAIN NOS 06/06/2016 OSIIVICTORIA BILL TYPIST Ot V45.01 CARDIAC PACEMAKER IN SITU 06/06/2016 MEENA HONG, NISHANT Reza Ot 715.36 LOC OSTEOARTH NOS-L/LEG 06/06/2016 MEENA HONG, NISHANT Reza Ot 791.9 ABN URINE FINDINGS NEC 06/06/2016 NISHANT ROBLEDO MD Ot V72.63 PRE-PROCEDURAL LABORATORY EXAMINATION 06/06/2016 NISHANT ROBLEDO MD Ot V72.81 [id number] CARDIOVASCULAR 06/06/2016 NISHANT ROBLEDO MD Ot V72.83 EXAM PRE-OPERATIVE NEC 06/06/2016 NISHANT ROBLEDO MD Ot V74.8 SCREEN-BACTERIAL DIS NEC 06/06/2016 SARBJIT AVILES Ot 397.0 TRICUSPID VALVE DISEASE 06/06/2016 SARBJIT AVILES Ot 401.9 HYPERTENSION NOS 06/06/2016 SARBJIT AVILES Ot 414.00 CORON ATHEROSCLER NOS TYPE VESSEL, NATIV 06/06/2016 SARBJIT AVILES Ot 424.0 MITRAL VALVE DISORDER 06/06/2016 SARBJIT AVILES Ot 427.81 SINOATRIAL NODE DYSFUNCT 06/06/2016 SARBJIT AVILES Ot 496 CHR AIRWAY OBSTRUCT NEC 06/06/2016 COCO SNELL MD Ot V76.12 OTH SCREEN MAMMO-MALIGN NEOPLASM OF DERECK 06/06/2016 COCO SNELL MD Ot Z12.31 ENCNTR SCREEN MAMMOGRAM FOR MALIGNANT NE 06/06/2016 COCO SNELL MD Ot M79.642 PAIN IN LEFT HAND 06/06/2016 SARBJIT AVILES Ot I10 ESSENTIAL (PRIMARY) HYPERTENSION 06/06/2016 ASRBJIT AVILES Ot I25.10 ATHSCL HEART DISEASE OF [place] CORONARY 06/06/2016 SARBJIT AVILES Ot I49.5 SICK SINUS SYNDROME 06/06/2016 SARBJIT AVILES Ot R07.89 OTHER CHEST PAIN 06/16/2016 Ot 401.9 HYPERTENSION NOS 06/16/2016 Ot 401.9 HYPERTENSION NOS 06/16/2016 Ot 786.09 RESPIRATORY ABNORM NEC 06/16/2016 Ot 733.00 OSTEOPOROSIS NOS 06/16/2016 Ot 793.82 INCONCLUSIVE MAMMOGRAM 06/16/2016 Ot V76.12 OTH SCREEN MAMMO-MALIGN NEOPLASM OF DERECK 06/16/2016 Ot 793.80 UNSPEC ABNORMAL MAMMOGRAM 06/16/2016 Ot 715.94 OSTEOARTHROS NOS-HAND 06/16/2016 Ot 715.96 OSTEOARTHROS NOS-L/LEG 06/16/2016 Ot 717.42 DERANGE ANT LAT MENISCUS 06/16/2016 Ot 733.90 BONE CARTILAGE DIS NOS 06/16/2016 Ot 562.10 DIVERTICULOSIS COLON (W/O MENT OF HEMORR 06/16/2016 Ot 789.02 ABDOMINAL PAIN, LEFT UPPER QUADRANT 06/16/2016 Ot 793.80 UNSPEC ABNORMAL MAMMOGRAM 06/16/2016 Ot 368.14 DISTORTION OF SHAPE/SIZE 06/16/2016 Ot V72.84 EXAM PRE-OPERATIVE NOS 06/16/2016 Ot 724.02 SPINAL STENOSIS, LUMBAR REG, W/OUT NEURO 06/16/2016 Ot V72.63 PRE-PROCEDURAL LABORATORY EXAMINATION 06/16/2016 Ot V72.81 [id number] CARDIOVASCULAR 06/16/2016 Ot V74.8 SCREEN-BACTERIAL DIS NEC 06/17/2016 RANDY HONG, JANUSZ Ot 401.9 HYPERTENSION NOS 06/17/2016 RANDY HONG, JANUSZ Ot 414.01 CORONARY ATHEROSCLEROSIS OF [place] CORON 06/17/2016 RANDY HONG, JANUSZ Ot 429.3 CARDIOMEGALY 06/17/2016 JANUSZ PADILLA MD Ot 780.4 DIZZINESS AND GIDDINESS 06/17/2016 RANDY HONG, JANUSZ Ot 780.79 OTH MALAISE FATIGUE 06/17/2016 JANUSZ PADILLA MD Ot 786.05 SHORTNESS OF BREATH 06/17/2016 JANUSZ PADILLA MD Ot 786.50 CHEST PAIN NOS 06/17/2016 JANUSZ PADILLA MD Ot V58.69 OTH MED,LT,CURRENT USE 06/17/2016 JANUSZ PADILLA MD Ot V72.63 PRE-PROCEDURAL LABORATORY EXAMINATION 06/17/2016 RANDY HONG, JANUSZ Ot V72.83 EXAM PRE-OPERATIVE NEC 06/17/2016 CHERRIE LUPIS Milind TYPIST Ot 397.0 TRICUSPID VALVE DISEASE 06/17/2016 CHERRIE LUPIS Milind TYPIST Ot 401.9 HYPERTENSION NOS 06/17/2016 CHERRIE LUPIS Milind TYPIST Ot 414.00 CORON ATHEROSCLER NOS TYPE VESSEL, NATIV 06/17/2016 CHERRIE LUPIS Milind TYPIST Ot 424.0 MITRAL VALVE DISORDER 06/17/2016 CHERRIE LUPIS Milind TYPIST Ot 780.4 DIZZINESS AND GIDDINESS 06/17/2016 CHERRIE LUPIS Milind TYPIST Ot 780.79 OTH MALAISE FATIGUE 06/17/2016 CHERRIE LUPIS Milind TYPIST Ot 786.05 SHORTNESS OF BREATH 06/17/2016 CHERRIE LUPIS Milind TYPIST Ot 786.50 CHEST PAIN NOS 06/17/2016 CHERRIE LUPIS Milind TYPIST Ot V58.69 OTH MED,LT,CURRENT USE 06/17/2016 OSIIVICTORIA BILL TYPIST Ot 786.50 CHEST PAIN NOS 06/17/2016 VICTORIA DE JESUSP Ot V45.01 CARDIAC PACEMAKER IN SITU 06/17/2016 NISHANT ROBLEDO MD Ot 715.36 LOC OSTEOARTH NOS-L/LEG 06/17/2016 NISHANT ROBLEDO MD Ot 791.9 ABN URINE FINDINGS NEC 06/17/2016 MEENA HONG, NISHANT Reza Ot V72.63 PRE-PROCEDURAL LABORATORY EXAMINATION 06/17/2016 MEENA HONG, NISHANT Reza Ot V72.81 [id number] CARDIOVASCULAR 06/17/2016 MEENA HONG, NISHANT Reza Ot V72.83 EXAM PRE-OPERATIVE NEC 06/17/2016 MEENA HONG, NISHANT Reza Ot V74.8 SCREEN-BACTERIAL DIS NEC 06/17/2016 SARBJIT AVILES Ot 397.0 TRICUSPID VALVE DISEASE 06/17/2016 SARBJIT AVILES Ot 401.9 HYPERTENSION NOS 06/17/2016 SARBJIT AVILES Ot 414.00 CORON ATHEROSCLER NOS TYPE VESSEL, NATIV 06/17/2016 SARBJIT AVILES Ot 424.0 MITRAL VALVE DISORDER 06/17/2016 SARBJIT AVILES Ot 427.81 SINOATRIAL NODE DYSFUNCT 06/17/2016 SARBJIT AVILES Ot 496 CHR AIRWAY OBSTRUCT NEC 06/17/2016 ALIS HONG, COCO Terrell Ot V76.12 OTH SCREEN MAMMO-MALIGN NEOPLASM OF DERECK 06/17/2016 ALIS HONG, COCO Terrell Ot Z12.31 ENCNTR SCREEN MAMMOGRAM FOR MALIGNANT NE 06/17/2016 ALIS HONG, COCO Terrell Ot M79.642 PAIN IN LEFT HAND 06/17/2016 SARBJIT AVILES Ot I10 ESSENTIAL (PRIMARY) HYPERTENSION 06/17/2016 SARBJIT AVILES Ot I25.10 ATHSCL HEART DISEASE OF [place] CORONARY 06/17/2016 SARBJIT AVILES Ot I49.5 SICK SINUS SYNDROME 06/17/2016 SARBJIT AVILES Ot R07.89 OTHER CHEST PAIN 06/19/2016 SARBJIT AVILES Ot I10 ESSENTIAL (PRIMARY) HYPERTENSION 06/19/2016 SARBJIT AVILES Ot I25.10 ATHSCL HEART DISEASE OF [place] CORONARY 06/19/2016 SARBJIT AVILES Ot I49.5 SICK SINUS SYNDROME 06/19/2016 SARBJIT AVILES Ot R07.89 OTHER CHEST PAIN 07/15/2016 SARBJIT AVILES Ot I10 ESSENTIAL (PRIMARY) HYPERTENSION 07/15/2016 SARBJIT AVILES Ot I25.10 ATHSCL HEART DISEASE OF [place] CORONARY 07/15/2016 SARBJIT AVILES Ot I49.5 SICK SINUS SYNDROME 07/15/2016 SARBJIT AVILES Ot R07.89 OTHER CHEST PAIN 12/02/2016 KAYLIE BRICEÑO MD, Ot M25.562 PAIN IN LEFT KNEE 12/02/2016 KAYLIE BRICEÑO MD Ot Z95.0 PRESENCE OF CARDIAC PACEMAKER 12/03/2016 KAYLIE BRICEÑO MD, Ot M25.562 PAIN IN LEFT KNEE 12/03/2016 KAYLIE BRICEÑO MD Ot Z95.0 PRESENCE OF CARDIAC PACEMAKER 12/04/2016 KAYLIE BRICEÑO MD Ot M25.562 PAIN IN LEFT KNEE 12/04/2016 KAYLIE BRICEÑO MD Ot Z95.0 PRESENCE OF CARDIAC PACEMAKER 12/09/2016 KAYLIE BRICEÑO MD Ot M25.562 PAIN IN LEFT KNEE 12/09/2016 KAYLIE BRICEÑO MD Ot Z95.0 PRESENCE OF CARDIAC PACEMAKER Procedures Code Description Performed By Performed On 37.22 07/02/2011 88.53 07/02/2011 88.56 07/02/2011 38.93 01/19/2013 86.59 01/19/2013 Results Encounters ACCT No. Visit Date/Time Discharge Status Pt. Type Provider Facility Loc./Unit Complaint [id number] 09/17/2012 11:08:00 09/17/2012 23: 59:59 CLS Outpatient
== END 2016-12-02 12:55 | disposition home or self-care (01) ==
LOC: EDUNIT# 11:50 → ER 11:51
DX: M25.562 Pain in left knee (principal); Z95.0 Presence of cardiac pacemaker
CPT/HCPCS: 96372; 99283